=== PATIENT | male | born 1955 | race Two or more races ===

== ENCOUNTER 2020-10-13 15:30 | Emergency (ER) | payer OTHER ==
[2020-10-13] MEDS ORDERED: CYCLOBENZAPRINE10 MG PO (17:59)
[2020-10-13] MEDS ORDERED: MEDROL 4MG DOSEP4 MG PO (17:59)
== END 2020-10-13 18:12 | disposition home or self-care (01) ==
LOC: FER 15:30
DX: M75.102 Unspecified rotator cuff tear or rupture of left shoulder, not specified as traumatic (principal); M75.101 Unspecified rotator cuff tear or rupture of right shoulder, not specified as traumatic
CPT/HCPCS: 99283